=== PATIENT | female | born 1965 | race Caucasian/White ===

== ENCOUNTER 2019-04-17 08:04 | Emergency (ER) | payer OTHER | END 2019-04-17 10:02 | disposition home or self-care (01) | LOC: JER 08:04 ==

== ENCOUNTER 2021-01-07 16:39 | Emergency (ER) | payer OTHER ==
[2021-01-07 16:49] VITALS: TEMP 98.2; BMI 29.9
[2021-01-07 20:18] VITALS: BP 119/77; PULSE 87
== END 2021-01-07 20:17 | disposition home or self-care (01) ==
LOC: JER 16:39
DX: R05 Cough (principal)
CPT/HCPCS: 71046-TC-FY; 99284-25

== ENCOUNTER 2023-08-09 08:49 | Emergency (ER) | payer OTHER ==
[2023-08-09 09:15] VITALS: TEMP 98.2; BMI 30.2
[2023-08-09] MEDS ORDERED: ACETAMINOPHEN 1000 MG/100 ML BAG IVPB ONE (10:03)
[2023-08-09] MEDS ORDERED: SODIUM CHLORIDE 0.9% 500 ML INFUS.BAG IV ONE (10:03)
[2023-08-09] MEDS ORDERED: ONDANSETRON 4 MG/2 ML VIAL IVPUSH ONE (10:03)
[2023-08-09] MEDS ORDERED: MAG HYDROX/AL HYDROX/SIMETH 30 ML UNIT-DOSE CUP PO ONE (10:34)
[2023-08-09] MEDS ORDERED: FAMOTIDINE 20 MG/50 ML IVPB 20 MG/50 ML MG IVPB ONE ×2 (10:34→10:54)
[2023-08-09] MEDS ORDERED: ONDANSETRON 4 MG/2 ML VIAL ONE (10:54)
[2023-08-09] MEDS ORDERED: MAG HYDROX/AL HYDROX/SIMETH 30 ML UNIT-DOSE CUP ONE (10:54)
[2023-08-09] MEDS ORDERED: ACETAMINOPHEN INJECTION 100 ML IVPB ONE (10:54)
[2023-08-09 12:00] LABS: BASO % 0.4 % (0-2.0); EOS % 1.3 % (0-4.5); HEMATOCRIT 45.7 % (32.4-45.2); HEMOGLOBIN 15.1 GM/dL (10.7-15.3); LYMPH % 27.9 % (8-40); MCH 29.9 pg (25.7-33.7); MCHC 33.1 g/dl (32.0-36.0); MEAN CELL VOLUME 90.3 fl (80-96); MEAN PLT VOLUME 8.6 fl (7.5-11.1); MONO % 6.6 % (3.8-10.2); NEUT % 63.8 % (42.8-82.8); PLATELET COUNT 286 10^3/uL (134-434); RBC 5.07 M/mm3 (3.60-5.2); RDW 12.8 % (11.6-15.6); WHITE BLOOD COUNT 7.3 K/mm3 (4.0-10.0)
[2023-08-09 12:34] LABS: POTASSIUM 4.6 mmol/L (3.5-5.1)
[2023-08-09 12:38] LABS: ALBUMIN 4.2 g/dl (3.4-5.0); CALCIUM 9.4 mg/dL (8.5-10.1)
[2023-08-09 12:39] LABS: BLOOD UREA NITROGEN 21.5 mg/dL (7-18); MAGNESIUM 2.5 mg/dL (1.8-2.4)
[2023-08-09 12:41] LABS: CREATININE 0.8 mg/dL (0.55-1.3)
[2023-08-09 12:43] LABS: BILIRUBIN,TOTAL 0.4 mg/dL (0.2-1); TOT PROT 7.6 g/dl (6.4-8.2)
[2023-08-09 17:05] VITALS: BP 109/69; PULSE 79; RESP 16
== END 2023-08-09 17:06 | disposition home or self-care (01) ==
LOC: JER 08:49
PROC: 3E033GC Introduction of Other Therapeutic Substance into Peripheral Vein, Percutaneous Approach (ICD-10-PCS; principal; 2023-08-09)
PROC: 3E033GC Introduction of Other Therapeutic Substance into Peripheral Vein, Percutaneous Approach (ICD-10-PCS; 2023-08-09)
PROC: 3E033NZ Introduction of Analgesics, Hypnotics, Sedatives into Peripheral Vein, Percutaneous Approach (ICD-10-PCS; 2023-08-09)
DX: R10.13 Epigastric pain (principal); R19.7 Diarrhea, unspecified; R11.0 Nausea; R63.0 Anorexia; K29.70 Gastritis, unspecified, without bleeding; Z20.822 Contact with and (suspected) exposure to COVID-19
CPT/HCPCS: 0241U-QW; 36415; 74177-TC; 76705-TC; 80053; 83690; 83735; 84484; 84702; 85025; 93005; 93010; 99285-25; Q9967

== ENCOUNTER 2024-01-13 19:24 | Emergency (ER) | payer OTHER ==
[2024-01-13 19:40] VITALS: BP 121/77; PULSE 83; RESP 18; TEMP 98; BMI 30.2
[2024-01-13] MEDS ORDERED: KETOROLAC TROMETHAMINE 15 MG/ML VIAL ONE (21:43)
[2024-01-13] MEDS: IBUPROFEN 400 MG TABLET (FP) PO ONE (21:45)
[2024-01-13] MEDS: KETOROLAC TROMETHAMINE 15 MG/ML VIAL IVPUSH ONE (21:45)
[2024-01-13 21:47] LABS: BASO % 0.7 % (0-2.0); EOS % 2.2 % (0-4.5); HEMATOCRIT 38.4 % (32.4-45.2); HEMOGLOBIN 12.9 GM/dL (10.7-15.3); LYMPH % 30.3 % (8-40); MCH 29.9 pg (25.7-33.7); MCHC 33.6 g/dl (32.0-36.0); MEAN PLT VOLUME 8.3 fl (7.5-11.1); MONO % 9.7 % (3.8-10.2); NEUT % 57.1 % (42.8-82.8); PLATELET COUNT 273 10^3/uL (134-434); RBC 4.32 M/mm3 (3.60-5.2); RDW 13.4 % (11.6-15.6); WHITE BLOOD COUNT 8.7 K/mm3 (4.0-10.0)
[2024-01-13 22:04] LABS: POTASSIUM 3.9 mmol/L (3.5-5.1)
[2024-01-13 22:06] LABS: BLOOD UREA NITROGEN 25.7 mg/dL (7-18); CALCIUM 8.9 mg/dL (8.5-10.1)
[2024-01-13 22:07] LABS: ALBUMIN 3.6 g/dl (3.4-5.0)
[2024-01-13 22:10] LABS: CREATININE 0.9 mg/dL (0.55-1.3)
[2024-01-13 22:11] LABS: BILIRUBIN,TOTAL 0.3 mg/dL (0.2-1); TOT PROT 6.7 g/dl (6.4-8.2)
== END 2024-01-14 00:49 | disposition home or self-care (01) ==
LOC: JER 19:24
PROC: 3E0303Z Introduction of Anti-inflammatory into Peripheral Vein, Open Approach (ICD-10-PCS; principal; 2024-01-13)
DX: R51.9 Headache, unspecified (principal); M25.512 Pain in left shoulder; R07.9 Chest pain, unspecified; V49.49XA Driver injured in collision with other motor vehicles in traffic accident, initial encounter
CPT/HCPCS: 36415; 72128-TC; 80053; 84484; 85025; 99284-25